=== PATIENT | female | born 1950 | race Two or more races ===

== ENCOUNTER 2021-11-05 11:22 | Outpatient (CLI) | payer OTHER | END 2021-11-05 15:00 | disposition home or self-care (01) | LOC: LAB 11:22 | PROVIDERS: ATTEND Orthopaedic Surgery | DX: E55.9 Vitamin D deficiency, unspecified (principal); M85.89 Other specified disorders of bone density and structure, multiple sites; E56.1 Deficiency of vitamin K; E21.3 Hyperparathyroidism, unspecified; D64.89 Other specified anemias; M06.4 Inflammatory polyarthropathy ==

== ENCOUNTER 2021-11-20 07:18 | Outpatient (CLI) | payer OTHER | END 2021-11-20 07:19 | disposition home or self-care (01) | LOC: NUCLEAR 07:18 | PROVIDERS: ATTEND Orthopaedic Surgery | DX: M25.562 Pain in left knee (principal) | CPT/HCPCS: 78315; 78802; A9503; A9556 ==